=== PATIENT | female | born 1965 | race Caucasian/White ===

== ENCOUNTER 2018-03-26 19:52 | Emergency (ER) | payer MEDICARE, MEDICAID ==
[~2018-03-26] VITALS: Ht 152.4 cm; Wt 63.0 kg
[2018-03-26] MEDS ORDERED: HYDROcodone/acetaminophen 10/325mg tab PO ONE (20:35)
[2018-03-26] MEDS ORDERED: HYDR-3965 PO (21:08)
[2018-03-26 21:54] VITALS: BP 144/80
== END 2018-03-26 22:07 | disposition home or self-care (01) ==
LOC: ER 19:52
DX: S52.591A Other fractures of lower end of right radius, initial encounter for closed fracture (principal); Z86.718 Personal history of other venous thrombosis and embolism; F17.210 Nicotine dependence, cigarettes, uncomplicated; Z88.0 Allergy status to penicillin; Z88.2 Allergy status to sulfonamides; Z79.899 Other long term (current) drug therapy; W01.0XXA Fall on same level from slipping, tripping and stumbling without subsequent striking against object, initial encounter; Y93.89 Activity, other specified; Y92.89 Other specified places as the place of occurrence of the external cause; Y99.8 Other external cause status
CPT/HCPCS: 29125; 73090; 99284

== ENCOUNTER 2018-04-03 11:21 | Outpatient (CLI) | payer MEDICARE, MEDICAID ==
[2018-04-03 11:08] VITALS: BP 154/81
[~2018-04-03 11:21] MED LIST: HYDR-3965 PO
== END 2018-04-03 11:55 | disposition home or self-care (01) ==
LOC: ORTHO 11:21
PROVIDERS: ATTEND Nurse Practitioner Family
DX: S52.591A Other fractures of lower end of right radius, initial encounter for closed fracture (principal); F17.210 Nicotine dependence, cigarettes, uncomplicated; I50.9 Heart failure, unspecified; J44.9 Chronic obstructive pulmonary disease, unspecified; W22.8XXA Striking against or struck by other objects, initial encounter; Y93.89 Activity, other specified; Y92.89 Other specified places as the place of occurrence of the external cause; Y99.8 Other external cause status
CPT/HCPCS: 99213; A4590

== ENCOUNTER 2018-04-16 13:40 | Outpatient (CLI) | payer MEDICARE, MEDICAID ==
[2018-04-16 13:37] VITALS: BP 122/88
== END 2018-04-16 14:12 | disposition home or self-care (01) ==
LOC: ORTHO 13:40
PROVIDERS: ATTEND Nurse Practitioner Family
DX: S52.591G Other fractures of lower end of right radius, subsequent encounter for closed fracture with delayed healing (principal); F17.210 Nicotine dependence, cigarettes, uncomplicated; M18.11 Unilateral primary osteoarthritis of first carpometacarpal joint, right hand; F41.9 Anxiety disorder, unspecified; I50.9 Heart failure, unspecified; J44.9 Chronic obstructive pulmonary disease, unspecified; Z91.030 Bee allergy status; Z79.899 Other long term (current) drug therapy; W22.8XXD Striking against or struck by other objects, subsequent encounter
CPT/HCPCS: 73110; 99213

== ENCOUNTER 2018-06-10 14:41 | Outpatient (CLI) | payer MEDICARE, MEDICAID ==
[2018-06-10 14:46] VITALS: BP 150/112
== END 2018-06-10 15:36 | disposition home or self-care (01) ==
LOC: ORTHO 14:41
PROVIDERS: ATTEND Nurse Practitioner Family
DX: S52.591D Other fractures of lower end of right radius, subsequent encounter for closed fracture with routine healing (principal); S52.611A Displaced fracture of right ulna styloid process, initial encounter for closed fracture; M79.89 Other specified soft tissue disorders; F12.90 Cannabis use, unspecified, uncomplicated; F41.9 Anxiety disorder, unspecified; J44.9 Chronic obstructive pulmonary disease, unspecified; I50.9 Heart failure, unspecified; F17.210 Nicotine dependence, cigarettes, uncomplicated; Z79.899 Other long term (current) drug therapy; Z88.0 Allergy status to penicillin; Z88.2 Allergy status to sulfonamides; Z91.030 Bee allergy status; W01.0XXD Fall on same level from slipping, tripping and stumbling without subsequent striking against object, subsequent encounter; W01.0XXA Fall on same level from slipping, tripping and stumbling without subsequent striking against object, initial encounter; Y93.89 Activity, other specified; Y92.89 Other specified places as the place of occurrence of the external cause; Y99.8 Other external cause status
CPT/HCPCS: 73110; 99213

== ENCOUNTER 2018-08-21 13:52 | Emergency (ER) | payer MEDICARE, MEDICAID ==
[~2018-08-21] VITALS: Ht 152.4 cm; Wt 113.0 kg
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
[2018-08-21] MEDS ORDERED: normal saline 1000ML IV soln IVB ONE (15:10)
--- NOTE | 2018-08-21 15:18 | NUR ---
pt is refusing ekg. charge nurse is aware.
[2018-08-21] MEDS ORDERED: LORazepam 2 mg/ml vial IM ONE ×2 (15:25→15:45)
[2018-08-21] MEDS ORDERED: haloperidol lactate 5mg/ml inj IM ONE ×2 (15:25→15:45)
--- NOTE | 2018-08-21 15:25 | NUR ---
TALKING WITH PATIENT IN HALLMET BED WHO THINKS THAT SHE IS IN [place] AT A HOUSE AND THAT HER MOTHER IS . PATIENT DOES NOT REORIENT. PATIENT STARTED YELLING, WHEN ASKED WHAT ARE YOU YELLING ABOUT, SHE SCREAMED "I WANT MY FUCKING SISTER" AND THEN SHE STARTED MUMBLING INCOMPREHENSIBLE SOUNDS. PATIENT DID NOT ANSWER WHEN ASKED HER NAME.
--- NOTE | 2018-08-21 15:30 | NUR ---
PATIENT TALKING TO HERSELF, I WENT TO TALK WITH HER AND GAVE HER A CUP OF WATER. PATIENT TOOK A SIP OF WATER AND APPEARED TO SWALLOW WITHOUT DIFFICULTY, NO COUGHING. WHILE ATTEMPTING TO TALK WITH PATIENT, PATIENT COMPLAINED OF RIGHT WRIST PAIN AND NECK PAIN: "OH THAT HURTS". PATIENT WOULD NOT ALLOW EXAMINATION OF HER NECK AND REFUSED PLACEMENT OF A CERVICAL COLLAR. THEN, PATIENT YELLED AND STARTED SCREAMING AND SWINGING HER RIGHT ARM AT MYSELF AND OTHER STAFF AND KICKING. SECURITY CALLED. MAYRA RÍOS AT BEDSIDE
--- NOTE | 2018-08-21 15:35 | NUR ---
medication given with casey sumner at bedside
[2018-08-21] MEDS ORDERED: diphenhydrAMINE 50 mg/ml inj IM ONE ×2 (15:45→16:20)
--- NOTE | 2018-08-21 16:30 | NUR ---
PATIENT ORIENTED TO SELF AND LOCATION. ASKING ABOUT HER " MOTHER" AND STARTED TO ESCALATE.; MAYRA RÍOS INFORMED
--- NOTE | 2018-08-21 16:30 | NUR ---
SISTERS NUMBER [id number]
--- NOTE | 2018-08-21 17:04 | NUR ---
pt is calm and cooperative, resp even and unlabored, to CT
[2018-08-21 17:13] LABS: BASOPHILS % (AUTO) 0.4 % (0-1); EOSINOPHILS # (AUTO) 0.1 X10'3 (0-0.9); EOSINOPHILS % (AUTO) 1.8 % (0-6); HEMATOCRIT 41.5 % (35.0-45.0); HEMOGLOBIN 14.1 g/dl (12.0-16.0); LYMPHOCYTES % (AUTO) 33.7 % (21-51); MEAN CORPUSCULAR VOLUME 82.3 FL (78-98); MEAN PLATELET VOLUME 7.9 FL (7.4-10.4); MONOCYTES # (AUTO) 0.5 X10'3 (0-0.9); MONOCYTES % (AUTO) 7.8 % (2-12); NEUTROPHILS # (AUTO) 3.3 X10'3 (1.8-7.7); NEUTROPHILS % (AUTO) 56.3 % (42-75); PLATELET COUNT 224 X10'3 (140-440); RED BLOOD COUNT 5.04 X10'6 (4.20-5.60); RED CELL DISTRIBUTION WIDTH 13.6 % (11.5-14.5); WHITE BLOOD COUNT 5.9 X10'3 (4.5-11.0)
[2018-08-21 17:19] LABS: ALANINE AMINOTRANSFERASE 25 U/L (12-78); ALBUMIN 3.3 G/DL (3.4-5.0); ALBUMIN/GLOBULIN RATIO 0.9 (1.1-1.5); ALKALINE PHOSPHATASE 81 IU/L (46-116); ANION GAP 8 (8-16); ASPARTATE AMINO TRANSFERASE 20 U/L (10-37); BILIRUBIN,TOTAL 0.5 MG/DL (0.1-1.0); BLOOD UREA NITROGEN 17 MG/DL (7-18); BUN/CREATININE RATIO 23.3 (6.6-38.0); CALCIUM 9.1 MG/DL (8.5-10.1); CHLORIDE 104 MMOL/L (99-107); CREATININE 0.73 MG/DL (0.40-0.90); GLUCOSE 95 MG/DL (70-104); POTASSIUM 3.5 MMOL/L (3.5-5.1); SODIUM 141 MMOL/L (135-145); TOTAL PROTEIN 6.8 G/DL (6.4-8.2); eGFR 83 ML/MIN
[2018-08-21 17:21] LABS: CREATINE KINASE 222 U/L (26-192); TROPONIN I < 0.04 NG/ML (0.0-0.05)
[2018-08-21 17:25] LABS: ETHANOL < 0.010 GM/DL (0.0-0.010)
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
--- NOTE | 2018-08-21 18:35 | NUR ---
pt sleeping, resp even and unlabored, still refusing to give urine sample, pt remains in hallway, unable to do telepsych as pt remains altered and is in the hallway, pt easily arouseable, oriented to person and place only, GCS 14
--- NOTE | 2018-08-21 19:29 | NUR ---
PT APPEARS TO BE SLEEPING. SHE IS AWAKENED AND ASKED TO PROVIDE URINE SAMPLE. SHE HAS BEEN ASKED MULTIPLE TIMES BY PRIMARY RN AND HAS YET TO PROVIDE A SAMPLE. PT WILL NOT ANSWER MY REQUEST TO PROVIDE A URINE. SHE IS GIVEN THE OPTION TO VOID ON HER OWN IN THE BATHROOM OR HAVE AN IN AND OUT CATH PERFORMED. SHE IS ALTERED TO THE POINT OF NOT BEING ABLE TO STATE A CLEAR DECISION. PT IS MOVED INTO A ROOM AND IN AND OUT CATH IS BEING SET UP TO BE PERFORMED. PA AWARE AND SECURITY IS CALLED TO BEDSIDE A SAFETY PRECAUTION DUE TO PT SWINGING AT STAFF EARLIER AND BEING VERY LOUD AND VOCAL.
--- NOTE | 2018-08-21 19:48 | NUR ---
FAXED PACKET TO [facility]
--- NOTE | 2018-08-21 19:53 | NUR ---
PT FINALLY COMPLIANT WITH GIVING URINE SAMPLE, ABLE TO TRANSFER SELF WITHOUT ASSIST FROM GURNEY TO WHEELCHAIR. DRESSED PT IN GREEN SCRUBS, CLOTHING LIST DONE
[2018-08-21 19:57] LABS: CLARITY,URINE CLEAR (Clear); COLOR,URINE YELLOW (Yellow); GLUCOSE, URINE NEGATIVE (Neg); KETONES,URINE NEGATIVE (Neg); LEUKOCYTE ESTERASE ,URINE NEGATIVE (Neg); NITRITES, URINE NEGATIVE (Neg); OCCULT BLOOD,URINE NEGATIVE (Neg); PROTEIN,URINE NEGATIVE (Neg); UROBILINOGEN,URINE 0.2 E.U/dL (0.2-1.0)
[2018-08-21 19:58] LABS: UA COLLECTION TYPE CLN CATCH MIDSTREAM
[2018-08-21 20:04] LABS: URINE AMPHETAMINE SCREEN POSITIVE (Neg); URINE BARBITUATE SCREEN NEGATIVE (Neg); URINE BENZODIAZEPINES SCREEN NEGATIVE (Neg); URINE CANNABINOID SCREEN POSITIVE (Neg); URINE COCAINE SCREEN NEGATIVE (Neg); URINE METHADONE SCREEN NEGATIVE (Neg); URINE OPIATE SCREEN NEGATIVE (Neg); URINE PHENCYCLIDINE SCREEN NEGATIVE (Neg)
--- NOTE | 2018-08-21 20:44 | NUR ---
pt is sleeping, resp even and unlabored
--- NOTE | 2018-08-21 21:30 | NUR ---
PT RESTING QUIETLY ON GURNEY
--- NOTE | 2018-08-21 22:30 | NUR ---
PT CONTINUES TO REST QUIETLY ON GURNEY, RESP EVEN AND UNLABORED
--- NOTE | 2018-08-21 23:30 | NUR ---
PT SLEEPING, RESP EVEN AND UNLABORED
--- NOTE | 2018-08-22 00:30 | NUR ---
PT SLEEPING, RESP EVEN AND UNLABORED
--- NOTE | 2018-08-22 01:16 | NUR ---
patient lying supine in bed covers on eyes closed rr even un labored no observable s/s of acute stress at this time
--- NOTE | 2018-08-22 02:51 | NUR ---
PATIENT IN BED EYES CLOSED RR EVEN UN LABORED NO OBSERVABLE S/S OF ACUTE STRESS AT THIS TIME
--- NOTE | 2018-08-22 04:50 | NUR ---
PATIENT IN BED COVERS ON EYES CLOSED RR EVEN UN LABORED NO OBSERVABLE S/S OF ACUTE STRESS AT THIS TIME
--- NOTE | 2018-08-22 06:41 | NUR ---
TELEPSYCH CONSULT REQUEST PLACED AND CAMERA SET IN ROOM. PT AWARE. PT REQUESTING HER EMERGENCY CONTACT BEING CONTACTED. WILL DO THIS IN A LITTLE BIT. PT AWARE OF PLAN. PT IS BEING COOPERATIVE AT THIS TIME.
[2018-08-22] MEDS ORDERED: GABA-532 PO (07:23)
[2018-08-22] MEDS ORDERED: DULO60CA64 PO (07:23)
[2018-08-22] MEDS ORDERED: IBUP-862 PO (07:23)
[2018-08-22] MEDS ORDERED: OMEP-50 PO (07:23)
[2018-08-22] MEDS ORDERED: METO100T14 PO (07:23)
--- NOTE | 2018-08-22 07:37 | NUR ---
MD MUNIRA CAMEJO CALLED AND ASKED ABOUT THE PT. SHE STATES SHE WILL NOW TALK WITH THE PT ON THE TELEPSYCH MACHINE.
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
--- NOTE | 2018-08-22 07:52 | NUR ---
MD CAMEJO STATES SHE BELIEVES THE PT IS FINE AND SHE IS ACTING NORMAL AND SHE IS PLANNING TO DISCHARGE HER.
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
--- NOTE | 2018-08-22 09:45 | NUR ---
CALLED THE TELEPSYCH CONSULT LINE AND WAS TOLD THEY SENT THE FAX FOR THE PT'S PLAN A WHILE AGO. I HAVE NOT SEEN A FAX COME THROUGH. THEY WILL SEND AGAIN.
[2018-08-22 10:22] VITALS: BP 165/93
== END 2018-08-22 10:24 | disposition home or self-care (01) ==
LOC: EEVIPCON 13:53 → ER 13:53
DX: F23 Brief psychotic disorder (principal); F31.9 Bipolar disorder, unspecified; R41.0 Disorientation, unspecified; R45.1 Restlessness and agitation; Z86.711 Personal history of pulmonary embolism; Z86.718 Personal history of other venous thrombosis and embolism; Z88.0 Allergy status to penicillin; Z88.2 Allergy status to sulfonamides
CPT/HCPCS: 36415; 70450; 71045; 72125; 80053; 80305; 80320; 81003; 82140; 82550; 82948; 83605; 84484; 85025; 87040; 93005; 96360; 96372; 99291; J1200; J1630; J2060; J7030

== ENCOUNTER 2019-02-07 04:10 | Emergency (ER) | payer MEDICARE, MEDICAID ==
[~2019-02-07] VITALS: Ht 152.4 cm; Wt 54.5 kg
[~2019-02-07 04:10] MED LIST changes: +DULO60CA65 PO; +GABA-532 PO; -HYDR-3965 PO; +IBUP-862 PO; +METO100T14 PO; +OMEP-50 PO
[2019-02-07] MEDS ORDERED: TETanus/Pertussis (Acell)/Diphther VAC/PF (Tdap-Adult) 0.5ml syringe IM ONE (04:45)
[2019-02-07] MEDS ORDERED: metoclopramide 10mg tablet PO ONE (04:50)
[2019-02-07] MEDS ORDERED: LORazepam 1 MG tablet PO ONE (04:50)
[2019-02-07 05:02] LABS: BASOPHILS # (AUTO) 0.1 X10'3 (0-0.2); BASOPHILS % (AUTO) 0.6 % (0-1); EOSINOPHILS # (AUTO) 0.1 X10'3 (0-0.9); EOSINOPHILS % (AUTO) 1.3 % (0-6); HEMATOCRIT 45.1 % (35.0-45.0); HEMOGLOBIN 15.3 g/dl (12.0-16.0); LYMPHOCYTES # (AUTO) 1.6 X10'3 (1.1-4.8); LYMPHOCYTES % (AUTO) 17.8 % (21-51); MEAN CORPUSCULAR HEMOGLOBIN 28.6 PG (27.0-31.0); MEAN CORPUSCULAR VOLUME 83.9 FL (78-98); MEAN PLATELET VOLUME 7.5 FL (7.4-10.4); MONOCYTES # (AUTO) 0.6 X10'3 (0-0.9); MONOCYTES % (AUTO) 6.8 % (2-12); NEUTROPHILS # (AUTO) 6.5 X10'3 (1.8-7.7); NEUTROPHILS % (AUTO) 73.5 % (42-75); PLATELET COUNT 238 X10'3 (140-440); RED BLOOD COUNT 5.37 X10'6 (4.20-5.60); WHITE BLOOD COUNT 8.8 X10'3 (4.5-11.0)
[2019-02-07 05:12] LABS: ALANINE AMINOTRANSFERASE 20 U/L (12-78); ALBUMIN 3.6 G/DL (3.4-5.0); ALBUMIN/GLOBULIN RATIO 0.9 (1.1-1.5); ALKALINE PHOSPHATASE 95 IU/L (46-116); ANION GAP 10 (8-16); ASPARTATE AMINO TRANSFERASE 16 U/L (10-37); BILIRUBIN,TOTAL 0.5 MG/DL (0.1-1.0); BLOOD UREA NITROGEN 14 MG/DL (7-18); BUN/CREATININE RATIO 17.9 (6.6-38.0); CALCIUM 9.2 MG/DL (8.5-10.1); CHLORIDE 103 MMOL/L (99-107); CREATININE 0.78 MG/DL (0.40-0.90); ETHANOL < 0.010 GM/DL (0.0-0.010); GLUCOSE 146 MG/DL (70-104); POTASSIUM 3.3 MMOL/L (3.5-5.1); SODIUM 140 MMOL/L (135-145); TOTAL CARBON DIOXIDE 26.8 MMOL/L (24-32); TOTAL PROTEIN 7.8 G/DL (6.4-8.2); eGFR 77 ML/MIN
--- NOTE | 2019-02-07 06:00 | NUR ---
Received report from Sheree CANDELARIA. pt ambulated to bed 25 from main ER, in green scrubs, and hospital socks, belongings at nurses station, on RA, will report to Day shift
[2019-02-07 06:21] LABS: URINE HCG NEGATIVE (NEG)
[2019-02-07 06:33] LABS: URINE AMPHETAMINE SCREEN POSITIVE (Neg); URINE BARBITUATE SCREEN NEGATIVE (Neg); URINE BENZODIAZEPINES SCREEN NEGATIVE (Neg); URINE CANNABINOID SCREEN POSITIVE (Neg); URINE COCAINE SCREEN NEGATIVE (Neg); URINE METHADONE SCREEN NEGATIVE (Neg); URINE OPIATE SCREEN NEGATIVE (Neg); URINE PHENCYCLIDINE SCREEN NEGATIVE (Neg)
--- NOTE | 2019-02-07 08:26 | NUR ---
PT RESTING, EYES CLOSED, RR EQUAL AND UNLABORED
[2019-02-07] MEDS ORDERED: OLANZapine 2.5MG tablet PO STA (16:00)
[2019-02-07] MEDS ORDERED: ketorolac trometh inj. 60 MG/2 ML VIAL IM ONE (16:00)
--- NOTE | 2019-02-07 16:02 | NUR ---
Pt sobbing in bed due to the pain from her arthritis and stating she cant take the pain anymore. pt requesting something for pain anxiety. Dr. Duvall ordered Zyprexa and toradol.
--- NOTE | 2019-02-07 17:21 | NUR ---
Spoke with pt's sister roselyn on the phone with pt's permission. Pt spoke to sister. Pt hung up on sister and doesn't want to talk to her again.
[2019-02-07] MEDS ORDERED: ziprasidone IM 20mg inj **IM only IM ONE (19:00)
[2019-02-07] MEDS ORDERED: LORazepam 2 mg/ml vial IM ONE (19:00)
--- NOTE | 2019-02-07 19:01 | NUR ---
Patient exhibits anger and is yelling. Non cooperative with staff. Patient will not discuss mental health or other concerns with this RN. The [facility] attempted an interview without success. IM antipsychotic medications ordered by ER MD.
--- NOTE | 2019-02-07 19:20 | NUR ---
Patient jumps out of bed, knocks food tray to the floor. She then postures towards security staff. Patient was carefuly moved to bed in preperation for IM medications.
--- NOTE | 2019-02-07 19:36 | NUR ---
Patient is starting to calm and cooperate some with this RN. She cries. Water given to patient. Patient is becoming cooperative at this point.
--- NOTE | 2019-02-07 19:55 | NUR ---
Shara Myers, this patients niece called. [phone] is her number. She wishes to speak with Ankita when she is in good condition to talk. This story writer spoke with the patient, the patient wants to talk with Shara in the am.
[2019-02-07] MEDS: ziprasidone 20mg capsule PO SCH (20:00)
[2019-02-07] MEDS: quetiapine 100mg tablet PO SCH (21:00)
--- NOTE | 2019-02-07 21:17 | NUR ---
Patient is sleeping quietly. Low fowlers position, in view from nursing station. Frequent rounding for patient safety.
--- NOTE | 2019-02-08 01:23 | NUR ---
Patient is sleeping quietly. In view from nursing station.
[2019-02-08] MEDS: ziprasidone 20mg capsule PO SCH ×2 (07:13→19:06)
[2019-02-08] MEDS: QUEtiapine 25mg tablet PO SCH (07:15)
--- NOTE | 2019-02-08 07:24 | NUR ---
PT SLEEPING ON RIGHT SIDE, RR EVEN AND UNLABORED
--- NOTE | 2019-02-08 08:00 | NUR ---
PT RESISTANT TO TAKING MEDICATIONS STATING SHE CANNOT USE HER HANDS OR FINGERS. PT DID TAKE THEM AND USED THE BATHROOM.
--- NOTE | 2019-02-08 08:09 | NUR ---
PT SLEEPING ON LEFT SIDE, RR EVEN AND UNLABORED
--- NOTE | 2019-02-08 10:05 | NUR ---
PT JAVIER BECKWITH CALLED. NO INFORMATION GIVEN. TOOK TELEPHONE NUMBER WHICH IS [phone]
--- NOTE | 2019-02-08 11:29 | NUR ---
PT SLEEPING ON BACK, RR EVEN AND UNLABORED
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
[2019-02-08] MEDS: ibuprofen 200mg tablet PO SCH ×2 (12:31→19:08)
--- NOTE | 2019-02-08 13:45 | NUR ---
PT YELLING THAT SOMEONE PUT FLIES IN HER FOOD. NO FLIES ARE VISIBLE
--- NOTE | 2019-02-08 15:13 | NUR ---
PT SLEEPING ON BACK RR EVEN AND UNLABORED
--- NOTE | 2019-02-08 15:46 | NUR ---
PT SLEEPING ON BACK RR EVEN AND UNLABORED
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
[2019-02-08] MEDS ORDERED: ibuprofen tablet 400 MG TABLET PO PRN (18:05)
--- NOTE | 2019-02-08 19:00 | NUR ---
Pt yelling out "do you know where my nurse is or anyone of authority". I have been on the floor for 45 minutes and had not heard her call for me. I went to her immediately and introduced myself and stated I did not hear her call for me. She became aggitated and yelled out "oh my god...can anybody hear me...is anyone listening" and she was yelling very loud about not being taken care of and "asked for a nurse 6 hrs ago... i wanted pain meds...". I asked her where her pain was and she continued yelling out about no one listening to her and that she just wants to . Security called to bedside. I was asking her questions about her pain and told her I did not want to start out the night in a bad way and asked what I could do to help her. She would not answer any questions. I told her I would look at her medications but would not stand at her bedside trying to reason with her if she is not answering me. Pt then updated of the available HS meds (geodone, neurontin, seroquel) and the pain med ibuprofen. She told me she would take these oral meds "just give them to me...give me lots of them...give me hundreds of them...why cant i just ...Isnt it my decision to live or ". I brought the meds a few minutes later and handed the med cup to the patient. "Can't you tell I can't use my hands or my arms...I can't put the pills in my mouth". She reported she could swallow them. I put the pills in her mouth and she swallowed them. And then sat calmly on the bed.
[2019-02-08] MEDS: quetiapine 100mg tablet PO SCH (19:05)
--- NOTE | 2019-02-08 19:44 | NUR ---
Dr. Crespo updated of Pts aggitation. Verbal recieved for ativan 2 mg im x1 now and adtl geodone 20 mg tablet and to increase geodone to 40 mg bid. Pt continues to cry out and hollering "someone please help me...". Will not state what she needs help with.
[2019-02-08] MEDS ORDERED: ziprasidone 20mg capsule PO ONE (19:50)
[2019-02-08] MEDS: LORazepam 2 mg/ml vial IM ONE ×3 (20:13→20:45)
[2019-02-08] MEDS: gabapentin 300mg capsule PO SCH (20:13)
--- NOTE | 2019-02-08 20:45 | NUR ---
PT SITTING UP AND AGGITATED AGAIN. SHE ASKES WHAT OTHER MEDS I HAVE FOR HER. i REPORTED i HAVE ATIVAN SHOT THAT WILL HELP HER TO CALM DOWN AND TO SLEEP. SHE IS AGREEABLE TO TAKING IT. GIVEN WITH NO SBA AND NOT ISSUES.
--- NOTE | 2019-02-08 21:44 | NUR ---
PT APPEARS TO BE SLEEPING, LYING ON HER RIGHT SIDE WITH BLANKET TO HER SHOULDERS. RR 14 AND UNLABORED. PT HAD DUMPED TOILETRIES OUT OF HER BASIN EARLIER WHEN UPSET AND THE VOIDED IN THE BASIN SHE WAS UPSET THAT "I CANT WALK...I HAVE PLANTAR WARTS ON MY BIG TOE AND THE SIDE OF MY FOOT (RIGHT)...WHY CANT I HAVE MY SHOE". I EXPLAINED THE POLICY HAD THE INTERNAL REVENUE AGENT EARLIER. IT IS NOTED IN HER CHART THAT PT UP TO AMBULATE TO BR THROUGH THE DAY SHIFT WITH NO ISSUES.
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
--- NOTE | 2019-02-08 23:55 | NUR ---
PT APPEARS TO BE SLEEPING , REMAINS ON HER BACK WITH HOB AT 20 DEGREES AND BLANKET COVERING TO HER CHEST. RR 14 AND UNLABORED.
--- NOTE | 2019-02-09 03:11 | NUR ---
Pt remains asleep. Pt lying on her right side with blankets covering to her shouders. RR 14 and unlabored.
--- NOTE | 2019-02-09 05:09 | NUR ---
Pt remains asleep, lying on her right side with blankets covering to her shouders. I will postpone takinig machine welt butter VS until later this am as Pt was very aggitated last night and took a long time to get to sleep. Pt had stable vs earlier.
[2019-02-09] MEDS: pantoprazole 40mg Tablet.DR PO SCH (08:14)
[2019-02-09] MEDS: ibuprofen 200mg tablet PO SCH ×3 (08:14→20:20)
[2019-02-09] MEDS: QUEtiapine 25mg tablet PO SCH (08:15)
[2019-02-09] MEDS: duloxetine 30mg CAPSULE.DR PO SCH (08:15)
[2019-02-09] MEDS: metoprolol tartrate 50mg tablet PO SCH (08:22)
[2019-02-09] MEDS: ziprasidone 20mg capsule PO SCH ×2 (08:23→20:20)
--- NOTE | 2019-02-09 09:44 | NUR ---
Pt. took am meds and ate breakfast without incident.
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
--- NOTE | 2019-02-09 12:13 | NUR ---
Pt. agitated. Yelled that she wants her cell phone.
--- NOTE | 2019-02-09 15:19 | NUR ---
Pt. has been awake and restless. Just not asked to have light turned off and is resting with eyes closed.
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
[2019-02-09] MEDS ORDERED: LORazepam 1 MG tablet PO ONE (20:00)
[2019-02-09] MEDS: quetiapine 100mg tablet PO SCH (20:20)
[2019-02-09] MEDS: gabapentin 300mg capsule PO SCH (20:20)
--- NOTE | 2019-02-09 21:09 | NUR ---
Patient sleeping comfortably in a supine position with even, unlabored breathing.
--- NOTE | 2019-02-09 22:03 | NUR ---
Patient continues to sleep supine.
--- NOTE | 2019-02-09 22:46 | NUR ---
Patient continues to sleep supine with even, unlabored respirations.
--- NOTE | 2019-02-10 00:11 | NUR ---
Patient continues to sleep in a supine position with even, unlabored breathing.
--- NOTE | 2019-02-10 01:31 | NUR ---
Patient continues to sleep.
--- NOTE | 2019-02-10 03:00 | NUR ---
Patient continues to sleep.
[2019-02-10 05:30] VITALS: BP_DIAS 75
--- NOTE | 2019-02-10 08:11 | NUR ---
Pt being seen by [facility] at this time
[2019-02-10] MEDS ORDERED: quetiapine 100mg tablet PO SCH (08:17)
[2019-02-10 08:58] VITALS: BP_SYST 131
[2019-02-10] MEDS: ziprasidone 20mg capsule PO SCH (08:58)
[2019-02-10] MEDS: metoprolol tartrate 50mg tablet PO SCH (08:58)
[2019-02-10] MEDS: pantoprazole 40mg Tablet.DR PO SCH (08:58)
[2019-02-10] MEDS: duloxetine 30mg CAPSULE.DR PO SCH (08:58)
[2019-02-10] MEDS: ibuprofen 200mg tablet PO SCH (08:58)
== END 2019-02-10 11:25 | disposition home or self-care (01) ==
LOC: ER 04:11
DX: S51.012A Laceration without foreign body of left elbow, initial encounter (principal); R45.851 Suicidal ideations; R45.850 Homicidal ideations; Z86.711 Personal history of pulmonary embolism; Z86.718 Personal history of other venous thrombosis and embolism; Z88.0 Allergy status to penicillin; Z88.2 Allergy status to sulfonamides; Z79.899 Other long term (current) drug therapy; W25.XXXA Contact with sharp glass, initial encounter; Y93.89 Activity, other specified; Y92.812 Truck as the place of occurrence of the external cause; Y99.8 Other external cause status
CPT/HCPCS: 36415; 80053; 80305; 80320; 81025; 85025; 96372; 99285; J1885; J2060; J3486; J8597